=== PATIENT | female | born 1960 | race African-American/Black ===

== ENCOUNTER 2016-07-07 08:38 | Emergency (ER) | payer OTHER ==
[2016-07-07 09:12] LABS: Bilirubin Negative (Negative); Blood, Urine Trace (Negative); Glucose, Urine (Dipstick) Negative (Negative); Leukocyte Trace (Negative); Nitrite Negative (Negative); Protein, Urine (Dipstick) Negative (Neg-Trace); Urobilinogen 0.2 mg/dL (0.2-1.0)
[2016-07-07 09:21] LABS: Clarity Hazy (Clear)
[2016-07-07 09:22] LABS: Bacteria/HPF 3+ HPF (None Seen); RBC/HPF 0-3 HPF (0-3)
== END 2016-07-07 09:50 | disposition home or self-care (01) ==
LOC: NAV ERS 08:38
DX: J06.9 Acute upper respiratory infection, unspecified (principal); N39.0 Urinary tract infection, site not specified; J45.909 Unspecified asthma, uncomplicated; Z79.899 Other long term (current) drug therapy
CPT/HCPCS: 81003; 81015; 87077; 87086; 87186; 99283

== ENCOUNTER 2019-12-20 00:20 | Emergency (ER) | payer OTHER, BC ==
--- NOTE | 2019-12-20 10:49 | RAD ---
LEFT HAND 3 VIEWS: HISTORY: Trauma to hand. 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 There are no signs of fracture or dislocation. IMPRESSION: No evidence of fracture. POS: OFF
== END 2019-12-20 01:51 | disposition home or self-care (01) ==
LOC: NAV ERS 00:20
DX: M79.642 Pain in left hand (principal); J45.909 Unspecified asthma, uncomplicated; Z79.51 Long term (current) use of inhaled steroids; W22.8XXA Striking against or struck by other objects, initial encounter

== ENCOUNTER 2022-10-12 00:57 | Emergency (ER) | payer BC ==
[2022-10-12] MEDS ORDERED: Sodium Chloride 0.9% 1,000 ML ONE (01:21)
[2022-10-12] MEDS ORDERED: Lorazepam 2 MG/ML VIAL ONE (01:21)
[2022-10-12] MEDS ORDERED: Aspirin Chewable 81 MG TAB ONE (01:21)
[2022-10-12 01:24] LABS: #Basophils 0.2 thou/uL (0.0-0.2); #Eosinphils 0.4 thou/uL (0.0-0.7); #Lymphocytes 5.5 thou/uL (1.20-3.40); #Monocytes 0.7 thou/uL (0.11-0.59); #Neutrophils 3.9 thou/uL (1.40-6.50); %Basophils 1.6 % (0.0-1.0); %Eosinophils 3.4 % (0.0-10.0); %Lymphocytes 51.9 % (21.0-51.0); %Monocytes 6.6 % (0.0-10.0); %Neutrophils 36.6 % (42.0-75.0); Hemoglobin 12.3 g/dL (12.0-16.0); Mean Corpuscular HGB CONC 31.9 g/dL (32.0-36.0); Mean Corpuscular Hemoglobin 28.4 pg (27.0-31.0); Mean Platelet Volume 7.8 fL (7.4-10.4); Platelet Count 227 10x3/uL (130-400); RBC Distribution Width 12.9 % (11.5-14.5); Red Blood Cell (RBC) Count 4.31 mill/uL (4.20-5.40); White Blood Cell (WBC) Count 10.5 10x3/uL (4.8-10.8)
[2022-10-12 01:37] LABS: ALT (SGPT) 9 U/L (8-55); AST (SGOT) 13 U/L (5-34); Albumin 3.8 g/dL (3.4-4.8); Alkaline Phosphatase 71 U/L (40-110); Anion Gap 13 mmol/L (10-20); BUN (Urea Nitrogen) 17 mg/dL (9.8-20.1); Bilirubin, Total 0.2 mg/dL (0.2-1.2); Calc. Creatinine Clearance 0 mL/min (70-130); Calcium 9.2 mg/dL (7.8-10.44); Carbon Dioxide 24 mmol/L (23-31); Chloride 107 mmol/L (98-107); Estimated GFR 53; Globulin 3.8 g/dL (2.4-3.5); Glucose 129 mg/dL (80-115); Protein, Total 7.6 g/dL (5.8-8.1); Sodium 141 mmol/L (136-145)
[2022-10-12] MEDS ORDERED: Potassium Chloride 20 MEQ TAB ONE (01:48)
== END 2022-10-12 05:42 | disposition home or self-care (01) ==
LOC: NAV ERS 00:57
DX: R07.9 Chest pain, unspecified (principal); J98.59 Other diseases of mediastinum, not elsewhere classified; I10 Essential (primary) hypertension
CPT/HCPCS: 71045; 71260; 80053; 84443; 84484; 85025; 85379; 93005; 94760; 96374; J2060; J7050